=== PATIENT | male | born 1950 | race Caucasian/White ===

== ENCOUNTER 2018-01-16 20:08 | Emergency (ER) | payer MEDICARE ==
[~2018-01-16] VITALS: Ht 177.8 cm; Wt 528.4 kg
[~2018-01-16 20:08] MED LIST: ALBUTEROL0.63 MG/3 INH; AMITRIPTYLINE H10 MG PO; ASPIR 8181 MG PO; HYDROCHLOROTHIA25 MG PO; HYDROCODON-ACE1 EAC8 PO; LIPITOR20 MG PO; LIPITOR40 MG PO; LISINOPRIL20 MG PO; NAPROSYN500 MG PO; OXYCODONE HCL10 MG PO; OXYCONTIN10 MG PO; PRILOSEC OTC20 MG PO; TIZANIDINE HCL4 M1 PO; TRAMADOL HCL50 MG PO; TYLENOL325 MG PO
[2018-01-16] MEDS ORDERED: METOPROLOL SUCC25 MG (20:22)
[2018-01-16] MEDS ORDERED: HYDROCHLOROTHIA25 MG PO (20:23)
[2018-01-16] MEDS ORDERED: CARDIZEM CD120 MG PO (20:24)
--- NOTE | 2018-01-17 11:06 | EKG ---
[facility] [address] [facility] [place] [address] Signed Normal sinus rhythm Normal ECG When compared with ECG of 15-DEC-2016 23:32, No significant change was found Confirmed by ADRYAN TOLEDO MD ([id number]) on 01/17/2018 11:05:54 AM Electronically Signed By: ADRYAN TOLEDO MD 01/17/18 1106 PATIENT NAME: TOM PEREZ Electrocardiogram DATE OF : 46 PHYSICIAN: ADRYAN TOLEDO MD REPORT #: [id number] REPORT IS CONFIDENTIAL AND NOT TO BE RELEASED WITHOUT AUTHORIZATION
== END 2018-01-16 21:00 | disposition left against medical advice (07) ==
LOC: ED 20:08
DX: Z53.21 Procedure and treatment not carried out due to patient leaving prior to being seen by health care provider (principal); R07.89 Other chest pain; I25.10 Atherosclerotic heart disease of native coronary artery without angina pectoris; I25.2 Old myocardial infarction; F17.200 Nicotine dependence, unspecified, uncomplicated; Z88.8 Allergy status to other drugs, medicaments and biological substances; Z79.899 Other long term (current) drug therapy; Z79.82 Long term (current) use of aspirin
CPT/HCPCS: 71045; 80053; 84484; 85025; 93005; 93010; 96374; 99284; G0480; J1885

== ENCOUNTER 2018-01-21 15:33 | Emergency (ER) | payer OTHER, MEDICARE ==
[~2018-01-21] VITALS: Ht 177.8 cm; Wt 528.4 kg
[~2018-01-21 15:33] MED LIST changes: +CARDIZEM CD120 MG PO; +METOPROLOL SUCC25 MG
--- NOTE | 2018-01-22 06:47 | EKG ---
[facility] [address] [facility] [place], [place] [address] Signed Normal sinus rhythm Normal ECG When compared with ECG of 16-JAN-2018 20:10, No significant change was found Confirmed by DEVANG KAMARA MD ([id number]) on 01/22/2018 6:47:03 AM Electronically Signed By: DEVANG KAMARA MD 01/22/18 0647 PATIENT NAME: BASSAM PEREZEUGENIA Perry Electrocardiogram DATE OF : 46 PHYSICIAN: DEVANG KAMARA MD REPORT #: [id number] REPORT IS CONFIDENTIAL AND NOT TO BE RELEASED WITHOUT AUTHORIZATION
== END 2018-01-21 17:45 | disposition left against medical advice (07) ==
LOC: ED 15:33
DX: F10.129 Alcohol abuse with intoxication, unspecified (principal); R10.13 Epigastric pain; F17.200 Nicotine dependence, unspecified, uncomplicated; Z88.8 Allergy status to other drugs, medicaments and biological substances; Z79.899 Other long term (current) drug therapy; Y90.6 Blood alcohol level of 120-199 mg/100 ml
CPT/HCPCS: 71045; 80053; 83690; 84484; 85025; 93005; 93010; 96374; 96375; 99284; G0480; J2405

== ENCOUNTER 2018-01-28 17:58 | Emergency (ER) | payer OTHER ==
[~2018-01-28] VITALS: Ht 177.8 cm; Wt 74.8 kg
[2018-01-29] MEDS ORDERED: LIDODERM1 EACH TOP (00:22)
--- NOTE | 2018-01-30 13:20 | EKG ---
[facility] [address] [facility] [place] [address] Signed Normal sinus rhythm Possible Left atrial enlargement Borderline ECG Confirmed by ADRYAN TOLEDO MD ([id number]) on 01/30/2018 1:20:16 PM Electronically Signed By: ADRYAN TOLEDO MD 01/30/18 1320 PATIENT NAME: TOM PEREZ Electrocardiogram DATE OF : 46 PHYSICIAN: ADRYAN TOLEDO MD REPORT #: [id number] REPORT IS CONFIDENTIAL AND NOT TO BE RELEASED WITHOUT AUTHORIZATION
== END 2018-01-29 00:32 | disposition home or self-care (01) ==
LOC: ED 17:58
DX: R07.89 Other chest pain (principal); K21.9 Gastro-esophageal reflux disease without esophagitis; F17.200 Nicotine dependence, unspecified, uncomplicated; I25.10 Atherosclerotic heart disease of native coronary artery without angina pectoris; Z79.82 Long term (current) use of aspirin; Z79.899 Other long term (current) drug therapy; Z88.8 Allergy status to other drugs, medicaments and biological substances
CPT/HCPCS: 71045; 80053; 84484; 85025; 85379; 85610; 93005; 93010; 99284; G0480